=== PATIENT | female | born 1970 | race Caucasian/White ===

== ENCOUNTER → 2022-02-17 | Outpatient (CLI) | payer OTHER ==
--- NOTE | 2022-02-17 13:51 | US ---
EXAMINATION TYPE: US renal artery duplex complet DATE OF EXAM: 02/17/2022 COMPARISON: NONE CLINICAL HISTORY: I10 HTN. Pt states HTN the last year MEASUREMENTS: RENAL SIZE: Rt Kidney: 10.4 x 4.1 x 4.5 Lt Kidney: 9.9 x 4.5 x 4.8 RESISTANCE INDEX Right: 0.6 Left: 0.5 RA/AO RATIO (< 3.5 ) Right: 1.1 Left: 1.1 RA VELOCITY ( < 180 cm/s) Right: 110 Left: 99 Aorta and bilateral kidneys appeared wnl/ No evidence of renal artery stenosis bilaterally. Aorta within normal limits without aneurysm. Kidneys are symmetric and within normal limits in size. No hydronephrosis seen. Doppler ultrasound evaluation shows satisfactory phasicity in the bilateral r enal arteries. No suspicious elevated velocity or elevated resistive indices identified bilaterally. IMPRESSION: No ultrasound evidence for hemodynamically significant focal renal artery stenosis.
--- NOTE | 2022-02-18 18:45 | MM ---
Reason for Exam: Screening (asymptomatic). Patient History: Menarche at age 10. First Full-Term at age 20. Postmenopausal. Patient has history of breast feeding. Risk Values: Amy 5 year model risk: 1.0%. NCI Lifetime model risk: 8.5%. Tissue Density: The breast tissue is heterogeneously dense. This may lower the sensitivity of mammography. Findings: Analyzed By CAD. There are couple of rounded density with partially obscured margins in the lower inner aspect left mid breast. Additional workup with ultrasound is recommended. Right breast appears without suspicious spiculated or lobular masses cluster microcalcifications or architectural distortion. Overall Assessment: Incomplete: need additional imaging evaluation, BI-RAD 0 Management: Diagnostic Breast Ultrasound of the left breast. A negative mammogram report should not preclude additional follow up of suspicious palpable abnormalities. Patient should continue monthly self breast exam. A clinical breast exam by your physician is recommended on an annual basis and results should be correlated with mammographic findings. Electronically signed and approved by: Mariano Castro D.O. Radiologis
== END | disposition home or self-care (01) ==
LOC: RADMAMWWP 07:29
PROVIDERS: ATTEND Family Medicine
DX: Z12.39 Encounter for other screening for malignant neoplasm of breast (principal); I10 Essential (primary) hypertension
CPT/HCPCS: 77067; 93975

== ENCOUNTER → 2022-03-02 | Outpatient (CLI) | payer OTHER ==
--- NOTE | 2022-03-02 09:44 | USB ---
Reason for Exam: Additional evaluation requested from abnormal screening. Patient History: Menarche at age 10. First Full-Term at age 20. Postmenopausal. Patient has history of breast feeding. Risk Values: Amy 5 year model risk: 1.0%. NCI Lifetime model risk: 8.5%. Technique: Method: Targeted. Prior Study Comparison: 02/17/2022 Bilateral MG screening mammo w CAD, [facility]. Findings: The lower inner quadrant of the left breast, the axilla of the left breast and the retroareolar of the left breast were scanned. Limited left breast ultrasound performed from 6:00 through 9:00 as well as the subareolar left breast. Cystic focus is present measuring 7 mm at the 7:00 position of the left breast 3 cm from the nipple corresponding to the mammographic abnormality. Overall Assessment: Benign, BI-RAD 2 Management: Screening Mammogram of both breasts in 1 year. A clinical breast exam by your physician is recommended on an annual basis and results should be correlated with mammographic findings. This exam should not preclude additional follow-up of suspicious palpable abnormalities. Results were given to the patient verbally at the time of exam. Electronically signed and approved by: Akash Harrell M.D. Radiologis
== END | disposition home or self-care (01) ==
LOC: RADUSWWP 07:35
PROVIDERS: ATTEND Family Medicine
DX: R92.8 Other abnormal and inconclusive findings on diagnostic imaging of breast (principal)

== ENCOUNTER → 2022-03-15 | Outpatient (CLI) | payer OTHER ==
--- NOTE | 2022-03-15 18:43 | CA ---
Transthoracic Echo Report Name: Kaye Em Age: 51 Gender: F : 1970 Exam Date: 03/15/2022 11:36 Exam Location: [facility] Ht (in): 62 Wt (lb): 135 Ordering Physician: Yon Schwarz MD Attending/Referring Phys: [id number], Chong Associate Professor Of Pathology Natalie Celis, [facility] Procedure CPT: Indications: I10 HTN Cardiac Hx: Technical Quality: Fair Contrast 1: Total Dose (mL): Contrast 2: Total Dose (mL): MEASUREMENTS (Male / Female) Normal Values 2D ECHO LV Diastolic Diameter PLAX 3.7 cm 4.2 - 5.9 / 3.9 - 5.3 cm LV Systolic Diameter PLAX 2.6 cm IVS Diastolic Thickness 1.3 cm 0.6 - 1.0 / 0.6 - 0.9 cm LVPW Diastolic Thickness 1.6 cm 0.6 - 1.0 / 0.6 - 0.9 cm LV Relative Wall Thickness 0.8 RV Internal Dim ED PLAX 2.7 cm LA Volume 35.8 cm??? 18 - 58 / 22 - 52 cm??? M-MODE Aortic Root Diameter MM 2.2 cm LA Systolic Diameter MM 3.1 cm LA Ao Ratio MM 1.4 AV Cusp Separation MM 1.7 cm DOPPLER AV Peak Velocity 117.1 cm/s AV Peak Gradient 5.5 mmHg LVOT Peak Velocity 101.8 cm/s LVOT Peak Gradient 4.1 mmHg MV Area PHT 3.2 cm??? Mitral E Point Velocity 102.5 cm/s Mitral A Point Velocity 86.9 cm/s Mitral E to A Ratio 1.2 MV Deceleration Time 240.1 ms MV E' Velocity 8.0 cm/s Mitral E to MV E' Ratio 12.8 TR Peak Velocity 248.6 cm/s TR Peak Gradient 24.7 mmHg Right Ventricular Systolic Press 29.0 mmHg FINDINGS Left Ventricle Mildly increased left ventricular wall thickness. Normal left ventricular systolic function with no obvious regional wall motion abnormalities. Left ventricular ejection fraction is estimated at 55-60 %. Right Ventricle Normal right ventricular size and function. Right ventricular systolic pressure within normal limits. Right Atrium Normal right atrial size. Left Atrium Normal left atrial size. No evidence for an atrial septal defect. Mitral Valve Structurally normal mitral valve. No mitral stenosis, regurgitation or prolapse. Aortic Valve Trileaflet aortic valve. No aortic valve stenosis or regurgitation. Tricuspid Valve Structurally normal tricuspid valve. Mild tricuspid regurgitation. Pulmonic Valve Trace pulmonic regurgitation. Pericardium No pericardial effusion. Aorta Normal size aortic root and proximal ascending aorta. CONCLUSIONS LVH with preserved systolic function Previewed by: Dr. Paul London MD (Electronically Signed) Final Date: 15 March 2022 18:42
== END | disposition home or self-care (01) ==
LOC: RADECHMAIN 11:22
PROVIDERS: ATTEND Family Medicine
DX: Z12.39 Encounter for other screening for malignant neoplasm of breast (principal); I10 Essential (primary) hypertension
CPT/HCPCS: 93306

== ENCOUNTER → 2022-03-30 | Outpatient (CLI) | payer OTHER | END | disposition home or self-care (01) | LOC: RADNMMAIN 08:59 | PROVIDERS: ATTEND Family Medicine | DX: Z53.9 Procedure and treatment not carried out, unspecified reason (principal) ==